=== PATIENT | female | born 1990 | race Caucasian/White ===

== ENCOUNTER 2018-12-18 20:07 | Inpatient (IN) | payer OTHER ==
[2018-12-18] MEDS: TERBUTALINE 1 MG/ML INJ SC ×2 (21:22→23:28)
[2018-12-18 21:30] LABS: ADD UMIC YES; UR ASCORBIC ACID NEGATIVE (NEGATIVE); UR BACTERIA FEW /HPF (NONE SEEN); UR BILIRUBIN (Dip) NEGATIVE (NEGATIVE); UR BLOOD (Dip) NEGATIVE (NEGATIVE); UR CLARITY CLOUDY (CLEAR); UR COLOR YELLOW (YELLOW); UR GLUCOSE (Dip) NEGATIVE (NEGATIVE); UR KETONES (Dip) NEGATIVE (NEGATIVE); UR LEUKOCYTE ESTERASE (Dip) 1+ Leu/ul (NEGATIVE); UR MUCUS FEW /HPF (NONE SEEN); UR NITRITE (Dip) NEGATIVE (NEGATIVE); UR RBC 4 /HPF (0-5); UR SPECIFIC GRAVITY (Dip) 1.016 (1.003-1.030); UR SQUAMOUS EPITHELIAL CELL MODERATE /HPF (FEW); UR TOTAL PROTEIN (Dip) NEGATIVE (NEGATIVE); UR UROBILINOGEN (Dip) NEGATIVE (NEGATIVE); UR WBC 5 /HPF (0-5)
[2018-12-18] MEDS: LACTATED RINGER'S 1,000 ML IV ×2 (21:47→23:27)
[2018-12-18 22:03] LABS: ADD MAN DIFF? NO
[2018-12-18 22:07] LABS: BASOPHILS % 0.6 % (0.0-2.0); EOSINOPHILS # 0.1 10^3/ul (0.0-0.5); EOSINOPHILS % 1.4 % (0.0-7.0); HEMATOCRIT 33.6 % (37.0-47.0); HEMOGLOBIN 11.5 g/dl (12.0-16.0); LYMPHOCYTES # 2.1 10^3/ul (0.8-2.9); LYMPHOCYTES % 30.4 % (15.0-51.0); MEAN CORPUSCULAR HEMOGLOBIN 30.3 pg (29.0-33.0); MEAN CORPUSCULAR HGB CONC 34.2 g/dl (32.0-37.0); MEAN CORPUSCULAR VOLUME 88.4 fl (82.0-101.0); MEAN PLATELET VOLUME 11.8 fl (7.4-10.4); MONOCYTE # 0.5 10^3/ul (0.3-0.9); MONOCYTES % 7.2 % (0.0-11.0); NEUTROPHIL # 4.2 10^3/ul (1.6-7.5); NEUTROPHILS % 59.4 % (39.0-77.0); PLATELET COUNT 167 10^3/UL (140-415)
[2018-12-19 01:21] LABS: INR 0.93; PROTIME 12.6 Sec (11.9-14.9)
[2018-12-19 01:22] LABS: PARTIAL THROMBOPLASTIN TIME 28.8 Sec (23.0-35.0)
[2018-12-19] MEDS ORDERED: CARBOPROST 250 MCG INJ IM ×2 (01:30→18:00)
[2018-12-19] MEDS ORDERED: OXYTOCIN 30 UNITS/LR 500 ML IV ×3 (01:30→18:00)
[2018-12-19] MEDS ORDERED: METHYLERGONOVINE 0.2 MG INJ IM ×2 (01:30→18:00)
[2018-12-19] MEDS ORDERED: MISOPROSTOL 200 MCG TAB PR ×2 (01:30→18:00)
[2018-12-19] MEDS ORDERED: CEFAZOLIN 2 GM/50 ML (PMX) 50 ML IVPB (01:30)
[2018-12-19] MEDS: BUTORPHANOL 2 MG INJ IV (01:41)
[2018-12-19 01:56] LABS: HEPATITIS B SURFACE ANTIGEN NEGATIVE (NEGATIVE)
[2018-12-19] MEDS: LACTATED RINGER'S 1,000 ML IV ×3 (06:03→17:46)
[2018-12-19] MEDS ORDERED: KETOROLAC 30 MG INJ (16:47)
[2018-12-19] MEDS ORDERED: ONDANSETRON 4 MG INJ (16:47)
[2018-12-19] MEDS ORDERED: morphine SULFATE/PF (10 MG/10 ML) INJ (16:47)
[2018-12-19] MEDS ORDERED: METOCLOPRAMIDE 10 MG INJ (16:47)
[2018-12-19] MEDS: CITRIC ACID/NA CITRATE 30 ML CUP PO (16:48)
[2018-12-19] MEDS ORDERED: EPHEDrine 25 MG/5 ML SYG (17:28)
[2018-12-19] MEDS: OXYTOCIN 30 UNITS/LR 500 ML IV ×2 (17:47→22:27)
[2018-12-19] MEDS ORDERED: METHYLERGONOVINE 0.2 MG TAB PO (18:00)
[2018-12-19] MEDS ORDERED: KETOROLAC 30 MG INJ IV (19:30)
[2018-12-19] MEDS ORDERED: DIPHENHYDRAMINE 50 MG INJ IV ×2 (19:30)
[2018-12-19] MEDS ORDERED: morphine 2 MG INJ IV ×6 (19:30)
[2018-12-19] MEDS ORDERED: NALOXONE (0.4 MG/ML) INJ IV (19:30)
[2018-12-19] MEDS ORDERED: ONDANSETRON 4 MG INJ IV ×2 (19:30)
[2018-12-19] MEDS: KETOROLAC 30 MG INJ IV (19:36)
[2018-12-19] MEDS: SENNA/DOCUSATE NA (8.6MG/50MG) TAB PO (21:25)
[2018-12-19 22:15] LABS: RAPID PLASMA REAGIN NONREACTIVE (NR)
[2018-12-20] MEDS: KETOROLAC 30 MG INJ IV ×2 (05:51→14:13)
[2018-12-20] MEDS: OXYTOCIN 30 UNITS/LR 500 ML IV (07:31)
[2018-12-20 08:13] LABS: ADD MAN DIFF? NO
[2018-12-20 08:17] LABS: BASOPHILS % 0.3 % (0.0-2.0); EOSINOPHILS # 0.1 10^3/ul (0.0-0.5); EOSINOPHILS % 0.6 % (0.0-7.0); HEMATOCRIT 33.1 % (37.0-47.0); HEMOGLOBIN 11.2 g/dl (12.0-16.0); LYMPHOCYTES # 1.1 10^3/ul (0.8-2.9); LYMPHOCYTES % 12.8 % (15.0-51.0); MEAN CORPUSCULAR HEMOGLOBIN 29.8 pg (29.0-33.0); MEAN CORPUSCULAR HGB CONC 33.8 g/dl (32.0-37.0); MEAN PLATELET VOLUME 11.9 fl (7.4-10.4); MONOCYTE # 0.4 10^3/ul (0.3-0.9); MONOCYTES % 4.7 % (0.0-11.0); NEUTROPHILS % 80.8 % (39.0-77.0); PLATELET COUNT 163 10^3/UL (140-415); RED BLOOD COUNT 3.76 10^6/ul (4.20-5.40); RED CELL DISTRIBUTION WIDTH 14.5 % (11.5-14.5)
[2018-12-20 08:17] LABS: WHITE BLOOD COUNT 8.6 10^3/ul (4.8-10.8)
[2018-12-20 08:34] LABS: ANION GAP 7 (5-13); BLOOD UREA NITROGEN 3 mg/dl (7-20); CALCIUM 8.8 mg/dl (8.4-10.2); CARBON DIOXIDE 22 mmol/L (21-31); CHLORIDE 103 mmol/L (97-110); CREATININE 0.43 mg/dl (0.44-1.00); Estimated GFR > 60 mL/min (>60); GLUCOSE 84 mg/dl (70-220); POTASSIUM 3.9 mmol/L (3.5-5.1); SODIUM 132 mmol/L (135-144)
[2018-12-20] MEDS: SENNA/DOCUSATE NA (8.6MG/50MG) TAB PO ×2 (09:19→21:34)
[2018-12-20] MEDS ORDERED: HYDROCODONE/APAP (5/325) TAB PO ×2 (09:30)
[2018-12-20] MEDS: LANOLIN HPA 1 PKT TOP (21:33)
[2018-12-21] MEDS: IBUPROFEN 800 MG TAB PO ×4 (00:07→20:17)
[2018-12-21] MEDS: DIPHTH/TET/ACEL PERTUSS (ADULT) 0.5 ML VIAL IM* (10:26)
[2018-12-21] MEDS: MEASLES,MUMPS,RUBELLA VACCINE INJ SC* (10:27)
[2018-12-21] MEDS: SENNA/DOCUSATE NA (8.6MG/50MG) TAB PO ×2 (12:11→20:16)
[2018-12-22] MEDS: IBUPROFEN 800 MG TAB PO ×2 (02:06→08:12)
[2018-12-22 06:52] LABS: ADD MAN DIFF? NO
[2018-12-22 06:57] LABS: BASOPHIL # 0.1 10^3/ul (0.0-0.1); BASOPHILS % 0.8 % (0.0-2.0); EOSINOPHILS # 0.3 10^3/ul (0.0-0.5); EOSINOPHILS % 3.2 % (0.0-7.0); HEMATOCRIT 35.5 % (37.0-47.0); HEMOGLOBIN 11.8 g/dl (12.0-16.0); LYMPHOCYTES # 1.6 10^3/ul (0.8-2.9); LYMPHOCYTES % 21.2 % (15.0-51.0); MEAN CORPUSCULAR HEMOGLOBIN 29.8 pg (29.0-33.0); MEAN CORPUSCULAR HGB CONC 33.2 g/dl (32.0-37.0); MEAN CORPUSCULAR VOLUME 89.6 fl (82.0-101.0); MEAN PLATELET VOLUME 10.9 fl (7.4-10.4); MONOCYTE # 0.4 10^3/ul (0.3-0.9); MONOCYTES % 4.9 % (0.0-11.0); NEUTROPHIL # 5.3 10^3/ul (1.6-7.5); NEUTROPHILS % 69.3 % (39.0-77.0); PLATELET COUNT 219 10^3/UL (140-415); RED BLOOD COUNT 3.96 10^6/ul (4.20-5.40); RED CELL DISTRIBUTION WIDTH 14.6 % (11.5-14.5)
[2018-12-22 06:57] LABS: WHITE BLOOD COUNT 7.7 10^3/ul (4.8-10.8)
[2018-12-22] MEDS: SENNA/DOCUSATE NA (8.6MG/50MG) TAB PO (08:12)
== END 2018-12-22 14:35 | disposition home or self-care (01) | DRG 788 ==
LOC: OBT 20:07 → L-D 20:08 → PP1 12-19 20:07
PROC: 10D00Z1 Extraction of Products of Conception, Low, Open Approach (ICD-10-PCS; principal; 2018-12-19 16:45)
DX: O34.211 Maternal care for low transverse scar from previous cesarean delivery (principal); Z3A.37 37 weeks gestation of pregnancy; Z37.0 Single live birth
CPT/HCPCS: 36415; 76815; 76818; 80048; 81001; 85025; 85610; 85730; 86592; 86850; 86900; 86901; 87086; 87340; 96360; 96361; 96372; 99464